=== PATIENT | male | born 1995 | race African-American/Black ===

== ENCOUNTER 2019-10-29 18:48 | Emergency (ER) | payer MEDICAID ==
[~2019-10-29] VITALS: Ht 193 cm; Wt 127.0 kg
[2019-10-29] MEDS ORDERED: HALOPERIDOL LACTATE 5 MG/1 ML VIAL ONE (18:59)
[2019-10-29] MEDS ORDERED: LORAZEPAM 2 MG/1 ML VIAL ONE (19:01)
--- NOTE | 2019-10-29 20:01 | NUR ---
pt had been medically cleared by Dr. Sofia
[2019-10-29 20:08] LABS: BASOPHILS # (AUTO) 0.1 K/uL (0.0-8.0); EOSINOPHILS # (AUTO) 0.1 K/uL (0.0-0.7); EOSINOPHILS % (AUTO) 1.4 % (0.0-7.0); HEMATOCRIT 45.7 % (36.7-47.1); HEMOGLOBIN 15.3 g/dL (12.5-16.3); LYMPHOCYTES # (AUTO) 2.4 K/uL (20.0-40.0); LYMPHOCYTES % (AUTO) 38.1 % (20.5-51.5); MEAN CORPUSCULAR HGB CONC 33 g/dL (32.5-36.3); MONOCYTES # (AUTO) 0.8 K/uL (2.0-10.0); MONOCYTES % (AUTO) 13.4 % (0.0-11.0); NEUTROPHILS # (AUTO) 2.9 K/uL (1.8-8.9); NEUTROPHILS % (AUTO) 46.1 % (38.5-71.5); PLATELET COUNT (AUTO) 274 K/uL (152-348); RED BLOOD CELL COUNT(AUTO) 5.08 MIL/uL (4.06-5.63); WHITE BLOOD COUNT (AUTO) 6.3 K/uL (3.6-10.2)
--- NOTE | 2019-10-29 20:08 | NUR ---
attempted to call [employer] Aba Putnam, unable to leave VM d/t VM not set up yet
[2019-10-29 20:12] LABS: CARBON DIOXIDE 22 mmol/L (21-32); CHLORIDE 103 mmol/L (98-107); CREATININE 1.4 mg/dL (0.6-1.3); GLUCOSE 105 mg/dL (74-106); POTASSIUM 3.2 mmol/L (3.5-5.1); UREA NITROGEN, BLOOD 12 mg/dL (7-18)
[2019-10-29 20:20] LABS: ETHANOL < 3 MG/DL (0-0)
--- NOTE | 2019-10-29 20:26 | NUR ---
2nd attempt to call [facility] Art Capilla [phone]. still no response. Unable to leave VM d/t VM not set up yet
[2019-10-29 20:30] LABS: ALANINE AMINOTRANSFERASE 79 U/L (16-63); ALKALINE PHOSPHATASE 97 U/L (50-136); ASPARTATE AMINOTRANSFERASE 34 U/L (15-37); BILIRUBIN,DIRECT 0.2 mg/dL (0.0-0.2); BILIRUBIN,TOTAL 0.9 mg/dL (0.2-1.0); CREATINE KINASE, TOTAL 138 U/L (39-308); TOTAL PROTEIN, SERUM 7.6 g/dL (6.4-8.2)
[2019-10-29 20:32] LABS: ACETAMINOPHEN < 2.0 ug/mL (10-30)
[2019-10-29 20:42] LABS: THYROID STIMULATING HORMONE 1.934 mIU/mL (0.358-3.740)
--- NOTE | 2019-10-29 21:06 | NUR ---
PATIENT SITTING AT BEDSIDE AWAKE EATING MEAL PROVIDED. PATIENT A & O X3. NO C/O ANY PAIN. NO S/S DISTRESS. NO SOB.
--- NOTE | 2019-10-29 22:05 | NUR ---
ART FROM PET SEEN PATIENT FOR EVALUATION.
--- NOTE | 2019-10-29 22:20 | NUR ---
THE [facility] WAS CALLED NO ANSWER. WILL TRY AGAIN. PATIENT NOT IN DISTRESS. Address: [address] [address], [place] [address]
--- NOTE | 2019-10-29 22:30 | NUR ---
THE [facility] WAS CALLED NO ANSWER. WILL TRY AGAIN. PATIENT NOT IN DISTRESS. Address: [address] [facility], [place] [address]
--- NOTE | 2019-10-29 22:40 | NUR ---
THE [facility] WAS CALLED NO ANSWER. WILL TRY AGAIN. Address: [address] [facility], [place] [address]
[2019-10-29] MEDS ORDERED: LORAZEPAM 2 MG/1 ML VIAL IV ONE (22:45)
[2019-10-29] MEDS ORDERED: HALOPERIDOL LACTATE 5 MG/1 ML VIAL IM ONE (22:45)
--- NOTE | 2019-10-29 23:20 | NUR ---
THE [facility] WAS CALLED NO ANSWER. WILL TRY AGAIN. Address: [address] [facility], [place] [address]
--- NOTE | 2019-10-30 00:29 | NUR ---
THE [facility] WAS CALLED NO ANSWER. WILL TRY AGAIN. Address: [address] [facility], [place] [address]
--- NOTE | 2019-10-30 01:00 | NUR ---
Patient is resting comfortably in bed with eyes closed.
--- NOTE | 2019-10-30 03:00 | NUR ---
Patient is resting comfortably in bed with eyes closed
--- NOTE | 2019-10-30 05:00 | NUR ---
PATIENT AWAKE IN BED NO C/O ANY SOB . NO PAIN.
[2019-10-30 05:05] LABS: *BILIRUBIN,URIN 1+ (NEGATIVE); *BLOOD, URINE NEGATIVE (NEGATIVE); *CLARITY,URINE SLIGHTLY CLOUDY (CLEAR); *COLOR,URINE AMBER (YELLOW); *KETONES,URINE NEGATIVE (NEGATIVE); LEUKOCYTE ESTERASE ,URINE NEGATIVE (NEGATIVE); NITRITE, URINE NEGATIVE (NEGATIVE); UGLUCOSE NEGATIVE (NEGATIVE)
[2019-10-30 05:17] LABS: BACTERIA,URINE NONE SEEN /HPF (NONE SEEN); MUCUS,URINE MANY /LPF (0-FEW); RBC,URINE 0-3 /HPF (0-3); SQUAMOUS EPITHELIAL CELL,UR FEW /HPF (NONE SEEN); WBC,URINE 0-3 /HPF (0-3)
[2019-10-30 05:22] LABS: *AMPHETAMINE, URINE NEGATIVE (NEGATIVE); *BARBITURATE, URINE NEGATIVE (NEGATIVE); *CANNABINOID, URINE NEGATIVE (NEGATIVE); *COCCAINE, URINE NEGATIVE (NEGATIVE); *OPIATE, URINE NEGATIVE (NEGATIVE); *PHENCYCLIDINE SCREEN,URINE NEGATIVE (NEGATIVE)
--- NOTE | 2019-10-30 05:30 | NUR ---
PATIENT COOPERATIVE A & O X3 IN HIS ROOM ISOLATION PRECAUTIONS MAINTAINED. DOES NOT VERBALIZE ANY SUICIDAL IDEATION OR HOMICIDAL IDEATION.
--- NOTE | 2019-10-30 05:45 | NUR ---
PATIENT STATED THAT HE WANTS TO GO TO HIS TO HOTEL THAT WAS SET UP BY [facility].
--- NOTE | 2019-10-30 05:46 | NUR ---
THE [facility] WAS CALLED NO ANSWER. Address: [address] [facility], [place] [address]
[2019-10-30 06:00] VITALS: BP 102/53
--- NOTE | 2019-10-30 06:00 | NUR ---
IV removed. Catheter intact and site benign. Pressure and 4x4 gauze applied to site. No bleeding noted.
--- NOTE | 2019-10-30 06:00 | NUR ---
ALL BELONGINGS SENT WITH PATIENT. STEADY GAIT. NO SOB. NO C/O ANY PAIN.
--- NOTE | 2019-10-30 06:00 | NUR ---
Patient discharged to [facility] in stable condition. Written and verbal after care instructions given. Patient taken by Taxi. Patient verbalizes understanding of instructions. Stressed follow up or return to ER for worsening s/s.
== END 2019-10-30 06:10 | disposition home or self-care (01) ==
LOC: ER 18:51
DX: R46.89 Other symptoms and signs involving appearance and behavior (principal); U07.1 COVID-19; N28.9 Disorder of kidney and ureter, unspecified; E87.1 Hypo-osmolality and hyponatremia; Z59.0 Homelessness
CPT/HCPCS: 36415; 80048; 80076; 80307 ×2; 80329; 81001; 82550; 84443; 85025; 93005; 96372 ×2; 99285; G0480; J1630; J2060; A4663